=== PATIENT | male | born 1965 | race Two or more races ===

== ENCOUNTER 2019-06-29 19:58 | Inpatient (IN) | payer MEDICAID ==
[~2019-06-29] VITALS: Ht 180.3 cm; Wt 75.8 kg
[~2019-06-29 19:58] MED LIST: SODIUM BICARBONATE 8.4% INJ 50ML SYRINGE ONE
[2019-06-29] MEDS ORDERED: ALBUTEROL SULF 2.5 MG/0.5ML(0.5%) NEB SOLN ONE (20:01)
[2019-06-29] MEDS ORDERED: CALCIUM CHLOR(10%) 100MG/ML 10ML SYRINGE IV ONE (20:06)
[2019-06-29] MEDS ORDERED: ALBUTEROL SULF 2.5 MG/0.5ML(0.5%) NEB SOLN HHN ONE (20:15)
[2019-06-29] MEDS ORDERED: CALCIUM GLUC 4.65meq/50ml D5AE 50 ML IV ONE (20:15)
[2019-06-29] MEDS ORDERED: SODIUM BICARBONATE 8.4 % INJ 50ML VIAL IV ONE (20:30)
[2019-06-29] MEDS ORDERED: CALCIUM CHL 100MG/ML 1,000 MG in D5W 5% 100 ML IV ONE (20:30)
[2019-06-29 20:41] LABS: Basophils # (auto) 0.1 10 ^3/uL (0-0.2); Eosinophils # (auto) 0.3 10 ^3/uL (0-0.8); Eosinophils % (auto) 6.6 % (0.0-7.0); Hematocrit 30.9 % (41.0-53.0); Hemoglobin 10.3 g/dL (13.5-17.5); Lymphocytes # (auto) 0.4 10 ^3/uL (0.4-5.4); Lymphocytes % (auto) 8.8 % (10.0-50.0); Mean Corpuscular Hemoglobin 27.4 pg (28.0-32.0); Mean Corpuscular Hgb Conc. 33.3 g/dL (32.0-36.0); Mean Corpuscular Volume 82.3 fL (80.0-100.0); Monocytes # (auto) 0.4 10 ^3/uL (0-1.3); Monocytes % (auto) 7.5 % (0.0-12.0); Neutrophils # (auto) 3.8 10 ^3/uL (1.6-8.6); Neutrophils % (auto) 76.1 % (37.0-80.0); Platelet Count (auto) 166 10^3/uL (140-450); Red Blood Cells 3.75 10^6/uL (4.5-5.90); Red Cell Distribution Width 18.7 % (11.8-14.3)
[2019-06-29] MEDS ORDERED: BACITRACIN INJ 50000 UNIT VIAL TOP ONE (20:45)
[2019-06-29] MEDS ORDERED: BACITRACIN TOP OINT 1 UD PKG TOP ONE (20:49)
[2019-06-29 21:08] LABS: Albumin 3.4 g/dL (3.4-5.0); Bilirubin, Total 0.4 mg/dL (0.2-1.0); Magnesium 3.7 mg/dL (1.6-2.6); Total Protein 6.4 g/dL (6.4-8.2)
[2019-06-29 21:18] LABS: Potassium 7.2 mmol/L (3.5-5.1)
[2019-06-29] MEDS ORDERED: SODIUM CHL 0.9% 1000 ML BAG XX ONE (22:00)
[2019-06-29] MEDS ORDERED: DOCUSATE SOD 100 MG CAP PO PRN (22:15)
[2019-06-29] MEDS ORDERED: ONDANSETRON HCL 4 MG/2 ML VIAL IV PRN (22:15)
[2019-06-29] MEDS ORDERED: HYDROcodone-ACET 5/325MG TAB PO PRN (22:15)
[2019-06-29] MEDS ORDERED: ACETAMINOPHEN 325 MG TAB PO PRN (22:15)
[2019-06-29] MEDS ORDERED: NITROGLYCERIN 0.4 MG SL TAB SL PRN (22:15)
[2019-06-29] MEDS ORDERED: MORPHINE SULF INJ 2 MG/ML SYRINGE 1ML IV PRN (22:15)
[2019-06-30 03:46] LABS: Basophils # (auto) 0 10 ^3/uL (0-0.2); Basophils % (auto) 0.6 % (0.0-2.0); Eosinophils # (auto) 0.3 10 ^3/uL (0-0.8); Eosinophils % (auto) 6.2 % (0.0-7.0); Hematocrit 31.9 % (41.0-53.0); Hemoglobin 10.7 g/dL (13.5-17.5); Lymphocytes # (auto) 0.6 10 ^3/uL (0.4-5.4); Lymphocytes % (auto) 10.8 % (10.0-50.0); Mean Corpuscular Hemoglobin 27.5 pg (28.0-32.0); Mean Corpuscular Hgb Conc. 33.4 g/dL (32.0-36.0); Mean Corpuscular Volume 82.2 fL (80.0-100.0); Monocytes # (auto) 0.4 10 ^3/uL (0-1.3); Monocytes % (auto) 7.8 % (0.0-12.0); Neutrophils # (auto) 3.9 10 ^3/uL (1.6-8.6); Neutrophils % (auto) 74.6 % (37.0-80.0); Platelet Count (auto) 167 10^3/uL (140-450); Red Blood Cells 3.88 10^6/uL (4.5-5.90); Red Cell Distribution Width 18.7 % (11.8-14.3); White Blood Cell 5.2 10^3/uL (4.4-10.8)
[2019-06-30 03:52] VITALS: BP 134/81
[2019-06-30 03:59] LABS: Calcium 8.3 mg/dL (8.5-10.1); Potassium 3.7 mmol/L (3.5-5.1)
[2019-06-30 04:02] LABS: BUN/Creatinine Ratio 3.4
[2019-06-30] MEDS ORDERED: hydrALAZINE HCL 25 MG TAB PO SCH (06:00)
[2019-06-30 08:00] VITALS: BP 143/77
[2019-06-30] MEDS: SEVELAMER 800 MG TAB PO SCH ×3 (08:22→18:27)
[2019-06-30] MEDS ORDERED: PANTOPRAZOLE 40 MG/10 ML VIAL INJ IV SCH (10:00)
[2019-06-30] MEDS ORDERED: CARVEDILOL 12.5 MG TAB PO SCH (10:00)
[2019-06-30] MEDS ORDERED: NIFEdipine ER 30 MG TAB PO ONE (10:15)
[2019-06-30 12:00] VITALS: BP 195/103
[2019-06-30] MEDS ORDERED: hydrALAZINE HCL 20 MG/ML VL IV PRN (13:00)
[2019-06-30 14:01] LABS: INR 1.07 (0.9-1.15); Partial Thromboplastin Time 32.8 sec (23.64-32.05)
[2019-06-30] MEDS ORDERED: hydrALAZINE HCL 25 MG TAB PO ONE (14:30)
[2019-06-30 16:00] VITALS: BP 179/94
[2019-06-30] MEDS ORDERED: DESMOPRESSIN INJECTION 20 MCG in SODIUM CHL 0.9% 50 ML IV ONE (19:00)
[2019-06-30 20:15] VITALS: BP 157/83
[2019-06-30] MEDS: NIFEdipine ER 30 MG TAB PO SCH (21:50)
[2019-06-30 23:51] VITALS: BP 152/92
[2019-07-01 03:28] LABS: Basophils # (auto) 0 10 ^3/uL (0-0.2); Eosinophils # (auto) 0.5 10 ^3/uL (0-0.8); Lymphocytes # (auto) 0.5 10 ^3/uL (0.4-5.4); Monocytes # (auto) 0.3 10 ^3/uL (0-1.3); Neutrophils # (auto) 3.7 10 ^3/uL (1.6-8.6)
[2019-07-01 03:30] LABS: Basophils % (auto) 0.7 % (0.0-2.0); Eosinophils % (auto) 9.9 % (0.0-7.0); Hematocrit 30.3 % (41.0-53.0); Lymphocytes % (auto) 9.3 % (10.0-50.0); Mean Corpuscular Hemoglobin 27.4 pg (28.0-32.0); Monocytes % (auto) 6.8 % (0.0-12.0); Neutrophils % (auto) 73.3 % (37.0-80.0); Platelet Count (auto) 137 10^3/uL (140-450); Red Blood Cells 3.65 10^6/uL (4.5-5.90); Red Cell Distribution Width 18.5 % (11.8-14.3)
[2019-07-01 03:48] LABS: Anion Gap 10 (5-15); BUN/Creatinine Ratio 3.4; Blood Urea Nitrogen 55 mg/dL (7-18); Calcium 7.4 mg/dL (8.5-10.1); Carbon Dioxide 22 mmol/L (21-32); Chloride 103 mmol/L (98-107); GFR African American 4 mL/min; GFR Non-African American 3 mL/min; Glucose 88 mg/dL (74-106); Potassium 5.5 mmol/L (3.5-5.1); Sodium 135 mmol/L (136-145)
[2019-07-01 04:22] VITALS: BP 154/88
[2019-07-01] MEDS: hydrALAZINE HCL 25 MG TAB PO SCH ×5 (06:00→23:31)
[2019-07-01] MEDS ORDERED: SODIUM CHL 0.9% 1000 ML BAG XX ONE (07:00)
[2019-07-01 08:30] VITALS: BP 140/72
[2019-07-01] MEDS: SEVELAMER 800 MG TAB PO SCH ×3 (08:48→17:50)
[2019-07-01] MEDS ORDERED: NIFEdipine ER 30 MG TAB PO SCH (10:00)
[2019-07-01] MEDS: NIFEdipine ER 30 MG TAB PO SCH ×2 (10:29→21:51)
[2019-07-01] MEDS: PANTOPRAZOLE 40 MG TAB PO SCH (10:30)
[2019-07-01 13:00] VITALS: BP 184/89
[2019-07-01 16:44] VITALS: BP 164/93
[2019-07-01] MEDS ORDERED: EPOETIN ALFA 4,000 UNIT/ML VL SC ONE (21:00)
[2019-07-01] MEDS: MORPHINE SULF INJ 2 MG/ML SYRINGE 1ML IV PRN (21:51)
[2019-07-01 22:14] VITALS: BP 164/97
[2019-07-01 22:15] VITALS: BP 164/97
[2019-07-02] MEDS: hydrALAZINE HCL 25 MG TAB PO SCH ×2 (05:25→12:58)
[2019-07-02] MEDS: MORPHINE SULF INJ 2 MG/ML SYRINGE 1ML IV PRN ×2 (05:26→10:00)
[2019-07-02 05:31] VITALS: BP 138/80
[2019-07-02 08:00] VITALS: BP 147/78
[2019-07-02] MEDS: SEVELAMER 800 MG TAB PO SCH ×2 (08:03→12:58)
[2019-07-02 09:29] VITALS: BP 147/78
[2019-07-02] MEDS: NIFEdipine ER 30 MG TAB PO SCH (09:45)
[2019-07-02] MEDS: PANTOPRAZOLE 40 MG TAB PO SCH (09:45)
[2019-07-02 11:42] VITALS: BP 147/78
[2019-07-02 14:41] VITALS: BP 192/103
== END 2019-07-02 15:30 | disposition home or self-care (01) | DRG 466 ==
LOC: EDBD 19:58 → ER 20:01 → ICU WEST 20:02 → DOU IN ICU 06-30 00:28 → TELE-CENTR 07-01 11:24
PROVIDERS: ADMIT Hospitalist; ATTEND Hospitalist
PROC: 5A1D70Z Performance of Urinary Filtration, Intermittent, Less than 6 Hours Per Day (ICD-10-PCS; 2019-06-29)
PROC: 06HM33Z Insertion of Infusion Device into Right Femoral Vein, Percutaneous Approach (ICD-10-PCS; 2019-06-29)
PROC: 5A1D70Z Performance of Urinary Filtration, Intermittent, Less than 6 Hours Per Day (ICD-10-PCS; principal; 2019-07-01)
DX: T82.510A Breakdown (mechanical) of surgically created arteriovenous fistula, initial encounter (principal); N18.6 End stage renal disease; I13.2 Hypertensive heart and chronic kidney disease with heart failure and with stage 5 chronic kidney disease, or end stage renal disease; I44.2 Atrioventricular block, complete; I50.41 Acute combined systolic (congestive) and diastolic (congestive) heart failure; I49.8 Other specified cardiac arrhythmias; E87.5 Hyperkalemia; D63.8 Anemia in other chronic diseases classified elsewhere; Y71.2 Prosthetic and other implants, materials and accessory cardiovascular devices associated with adverse incidents; Z99.2 Dependence on renal dialysis; Z91.15 Patient's noncompliance with renal dialysis; Z91.19 Patient's noncompliance with other medical treatment and regimen
CPT/HCPCS: 36415; 36556; 36600; 71045; 80048; 80053; 80061; 82805; 83735; 83880; 84484; 85025; 85610; 85730; 94640; 96365; 96375; 99291; G0378; J1642; J2405; J7060

== ENCOUNTER 2019-08-22 20:41 | Inpatient (IN) | payer MEDICAID ==
[~2019-08-22] VITALS: Ht 180.3 cm; Wt 79.8 kg
[2019-08-22] MEDS ORDERED: hydrALAZINE HCL 20 MG/ML VL IV ONE (21:00)
[2019-08-22 22:13] LABS: Basophils # (auto) 0.1 10 ^3/uL (0-0.2); Hemoglobin 7.7 g/dL (13.5-17.5); Lymphocytes # (auto) 0.7 10 ^3/uL (0.4-5.4); Monocytes # (auto) 0.5 10 ^3/uL (0-1.3); White Blood Cell 16.8 10^3/uL (4.4-10.8)
[2019-08-22 22:14] LABS: Basophils % (auto) 0.6 % (0.0-2.0); Eosinophils # (auto) 2.1 10 ^3/uL (0-0.8); Eosinophils % (auto) 12.5 % (0.0-7.0); Hematocrit 23.9 % (41.0-53.0); Mean Corpuscular Hemoglobin 28.6 pg (28.0-32.0); Mean Corpuscular Hgb Conc. 32.2 g/dL (32.0-36.0); Mean Corpuscular Volume 88.9 fL (80.0-100.0); Neutrophils # (auto) 13.4 10 ^3/uL (1.6-8.6); Neutrophils % (auto) 79.9 % (37.0-80.0); Platelet Count (auto) 250 10^3/uL (140-450); Red Blood Cells 2.69 10^6/uL (4.5-5.90); Red Cell Distribution Width 17.5 % (11.8-14.3)
[2019-08-22 22:21] LABS: Albumin 3.2 g/dL (3.4-5.0); Calcium 8.9 mg/dL (8.5-10.1); Potassium 4.7 mmol/L (3.5-5.1)
[2019-08-22 22:26] LABS: BUN/Creatinine Ratio 6.7; Bilirubin, Total 0.6 mg/dL (0.2-1.0); Total Protein 7.7 g/dL (6.4-8.2)
[2019-08-22 22:29] LABS: INR 1.02 (0.9-1.15); Partial Thromboplastin Time 30.5 sec (23.64-32.05)
[2019-08-22] MEDS ORDERED: ONDANSETRON HCL 4 MG/2 ML VIAL IV ONE (22:45)
[2019-08-22] MEDS ORDERED: MORPHINE SULFATE 4 MG/ML SYR/VIAL IV ONE (22:45)
[2019-08-22] MEDS ORDERED: levoFLOXacin 750MG 150 ML IV ONE (23:00)
[2019-08-23] MEDS ORDERED: TEMAZEPAM 15 MG CAP PO PRN (00:45)
[2019-08-23] MEDS ORDERED: NITROGLYCERIN 0.4 MG SL TAB SL PRN (00:45)
[2019-08-23] MEDS ORDERED: ACETAMINOPHEN 325 MG TAB PO PRN (00:45)
[2019-08-23] MEDS ORDERED: MORPHINE SULF INJ 2 MG/ML SYRINGE 1ML IV PRN (00:45)
[2019-08-23] MEDS ORDERED: ONDANSETRON HCL 4 MG/2 ML VIAL IV PRN (00:45)
[2019-08-23 01:13] VITALS: BP 167/83
[2019-08-23] MEDS: hydrALAZINE HCL 25 MG TAB PO SCH ×3 (06:20→21:48)
[2019-08-23] MEDS: ALBUTEROL SULF HFA 90MCG INH 200DOSE IN SCH ×2 (06:30→14:00)
[2019-08-23] MEDS: CALCIUM ACETATE 667 MG CAP PO SCH ×3 (08:00→18:02)
[2019-08-23 08:20] LABS: Magnesium 2.9 mg/dL (1.6-2.6)
[2019-08-23 08:29] LABS: CRP High Sensitivity 3.62 mg/dL (< 0.3)
[2019-08-23] MEDS: DOXYCYCLINE 100MG/250ML 250 ML IV SCH ×2 (09:49→23:26)
[2019-08-23] MEDS: ASPirin 81 mg TAB PO SCH (09:49)
[2019-08-23] MEDS: ZINC SULFATE 220mg CAP or TAB PO SCH (09:49)
[2019-08-23] MEDS: CHOLECALCIFEROL (VITD3) 1,000UNIT=25mCg TAB PO SCH (09:50)
[2019-08-23] MEDS: ASCORBIC ACID 1,000 MG TAB PO SCH (09:50)
[2019-08-23] MEDS: NIFEdipine ER 30 MG TAB PO SCH (09:50)
[2019-08-23] MEDS: CARVEDILOL 12.5 MG TAB PO SCH ×2 (10:21→21:49)
[2019-08-23] MEDS: MEROPENEM 500MG IVPB 50 ML IV SCH (14:30)
[2019-08-23 17:00] VITALS: BP 154/82
[2019-08-23] MEDS ORDERED: CATHFLO ACTIVASE (ALTEPLASE) 2 MG VIAL IV ONE (17:00)
[2019-08-23] MEDS ORDERED: VANCOMYCIN PER PHARMACY 0 MG IV SCH (18:30)
[2019-08-23] MEDS ORDERED: ALBUTEROL SULF 2.5 MG/0.5ML(0.5%) NEB SOLN NEB PRN (19:15)
[2019-08-23 19:22] LABS: Lymphocytes # (auto) 0.3 10 ^3/uL (0.4-5.4); Monocytes # (auto) 0.4 10 ^3/uL (0-1.3); White Blood Cell 11.2 10^3/uL (4.4-10.8)
[2019-08-23 19:23] LABS: Basophils # (auto) 0 10 ^3/uL (0-0.2); Basophils % (auto) 0.4 % (0.0-2.0); Eosinophils # (auto) 0.9 10 ^3/uL (0-0.8); Eosinophils % (auto) 8.1 % (0.0-7.0); Hematocrit 19.1 % (41.0-53.0); Lymphocytes % (auto) 2.8 % (10.0-50.0); Mean Corpuscular Hemoglobin 28.4 pg (28.0-32.0); Mean Corpuscular Hgb Conc. 31.8 g/dL (32.0-36.0); Mean Corpuscular Volume 89.1 fL (80.0-100.0); Monocytes % (auto) 3.8 % (0.0-12.0); Neutrophils # (auto) 9.5 10 ^3/uL (1.6-8.6); Neutrophils % (auto) 84.9 % (37.0-80.0); Platelet Count (auto) 174 10^3/uL (140-450); Red Blood Cells 2.14 10^6/uL (4.5-5.90); Red Cell Distribution Width 16.8 % (11.8-14.3)
[2019-08-23 19:47] LABS: Hemoglobin 6.1 g/dL (13.5-17.5)
[2019-08-23] MEDS ORDERED: EPOETIN ALFA 10,000 UNIT/1 ML VIAL IV ONE (21:00)
[2019-08-23] MEDS ORDERED: VANCOMYCIN 1GM/250ML 250 ML IV ONE (21:00)
[2019-08-23] MEDS: methylPREDNISolone SOD SUCC 40 MG/ML VL IV SCH (21:49)
[2019-08-23 22:00] VITALS: BP 153/97
[2019-08-24] VITALS (17 sets, daily range): BP systolic 114–196; BP diastolic 59–101
[2019-08-24] MEDS: ALBUTEROL SULF 2.5 MG/0.5ML(0.5%) NEB SOLN NEB SCH ×4 (00:05→19:16)
[2019-08-24] MEDS: IPRATROPIUM BROM 0.5 MG/2.5ML INH SOL NEB SCH ×4 (00:05→19:16)
[2019-08-24] MEDS: MEROPENEM 500MG IVPB 50 ML IV SCH (01:04)
[2019-08-24] MEDS: hydrALAZINE HCL 25 MG TAB PO SCH ×3 (06:24→21:47)
[2019-08-24] MEDS ORDERED: SODIUM CHL 0.9% 1000 ML BAG XX ONE (07:00)
[2019-08-24] MEDS: CALCIUM ACETATE 667 MG CAP PO SCH ×3 (08:00→17:08)
[2019-08-24 08:18] LABS: % Iron Saturation 6.9 % (20-55)
[2019-08-24 08:19] LABS: Albumin 2.7 g/dL (3.4-5.0); Calcium 9.1 mg/dL (8.5-10.1)
[2019-08-24 08:24] LABS: BUN/Creatinine Ratio 7.1; Bilirubin, Total 0.6 mg/dL (0.2-1.0); Total Protein 6.8 g/dL (6.4-8.2)
[2019-08-24 08:26] LABS: Potassium 6.2 mmol/L (3.5-5.1)
[2019-08-24 09:25] LABS: Basophils # (auto) 0 10 ^3/uL (0-0.2); Basophils % (auto) 0.1 % (0.0-2.0); Eosinophils # (auto) 0 10 ^3/uL (0-0.8); Eosinophils % (auto) 0.3 % (0.0-7.0); Hematocrit 20.1 % (41.0-53.0); Lymphocytes # (auto) 0.2 10 ^3/uL (0.4-5.4); Mean Corpuscular Hgb Conc. 32.8 g/dL (32.0-36.0); Mean Corpuscular Volume 88.5 fL (80.0-100.0); Monocytes # (auto) 0.1 10 ^3/uL (0-1.3); Monocytes % (auto) 0.9 % (0.0-12.0); Neutrophils # (auto) 8.3 10 ^3/uL (1.6-8.6); Neutrophils % (auto) 96.7 % (37.0-80.0); Nucleated Red Blood Cells % 0.1 %; Platelet Count (auto) 149 10^3/uL (140-450); Red Blood Cells 2.27 10^6/uL (4.5-5.90); Red Cell Distribution Width 16.1 % (11.8-14.3); White Blood Cell 8.6 10^3/uL (4.4-10.8)
[2019-08-24 09:30] LABS: Hemoglobin 6.6 g/dL (13.5-17.5)
[2019-08-24] MEDS ORDERED: METOCLOPRAMIDE HCL 5MG/ml INJ 2ml VIAL IV ONE (09:30)
[2019-08-24] MEDS: CARVEDILOL 12.5 MG TAB PO SCH ×3 (10:00→21:48)
[2019-08-24] MEDS: NIFEdipine ER 30 MG TAB PO SCH ×2 (10:00→15:00)
[2019-08-24] MEDS: ZINC SULFATE 220mg CAP or TAB PO SCH (10:20)
[2019-08-24] MEDS: DOXYCYCLINE 100MG/250ML 250 ML IV SCH ×2 (10:20→21:47)
[2019-08-24] MEDS: ASCORBIC ACID 1,000 MG TAB PO SCH (10:21)
[2019-08-24] MEDS: CHOLECALCIFEROL (VITD3) 1,000UNIT=25mCg TAB PO SCH (10:21)
[2019-08-24] MEDS: ASPirin 81 mg TAB PO SCH (10:21)
[2019-08-24] MEDS: methylPREDNISolone SOD SUCC 40 MG/ML VL IV SCH (10:21)
[2019-08-24 10:56] LABS: INR 1.13 (0.9-1.15)
[2019-08-24] MEDS ORDERED: LIDOCAINE 1% (LOCAL ANESTH.) PF 5ml SDV ID PRN (15:45)
[2019-08-24] MEDS ORDERED: VANCOMYCIN 750mg/250ml 250 ML IV ONE (17:00)
[2019-08-24] MEDS ORDERED: EPOETIN ALFA 10,000 UNIT/1 ML VIAL SC ONE (21:00)
[2019-08-24] MEDS ORDERED: SODIUM CHLOR 0.9% PF (SALINE LOCK) 10ML VIAL/SYR IV SCH (22:00)
[2019-08-25] MEDS: ALBUTEROL SULF 2.5 MG/0.5ML(0.5%) NEB SOLN NEB SCH (00:27)
[2019-08-25] MEDS: IPRATROPIUM BROM 0.5 MG/2.5ML INH SOL NEB SCH (00:27)
[2019-08-25] MEDS ORDERED: SODIUM CHL 0.9% 1000 ML BAG XX ONE (07:00)
[2019-08-25] MEDS ORDERED: cefTRIAXone 1GM/50ML D5W 50 ML IV SCH (09:00)
[2019-08-25] MEDS ORDERED: MEROPENEM 500MG IVPB 50 ML IV SCH (14:00)
[2019-08-25] MEDS ORDERED: EPOETIN ALFA 10,000 UNIT/1 ML VIAL SC ONE (21:00)
== END 2019-08-25 01:22 | disposition short-term general hospital (02) | DRG 720 ==
LOC: ER 20:42 → TELE 20:43 → ER 23:20 → TELE 08-23 11:53 → TELE-WESTW 08-23 16:30
PROVIDERS: ADMIT Nurse Practitioner; ATTEND Internal Medicine Nephrology
PROC: 5A09457 Assistance with Respiratory Ventilation, 24-96 Consecutive Hours, Continuous Positive Airway Pressure (ICD-10-PCS; 2019-08-23)
PROC: 30230N1 Transfusion of Nonautologous Red Blood Cells into Peripheral Vein, Open Approach (ICD-10-PCS; principal; 2019-08-24)
PROC: 02HV33Z Insertion of Infusion Device into Superior Vena Cava, Percutaneous Approach (ICD-10-PCS; 2019-08-24)
DX: A41.9 Sepsis, unspecified organism (principal); I13.2 Hypertensive heart and chronic kidney disease with heart failure and with stage 5 chronic kidney disease, or end stage renal disease; I16.1 Hypertensive emergency; I50.43 Acute on chronic combined systolic (congestive) and diastolic (congestive) heart failure; N18.6 End stage renal disease; Z99.2 Dependence on renal dialysis; J81.1 Chronic pulmonary edema; I25.10 Atherosclerotic heart disease of native coronary artery without angina pectoris; I21.A1 Myocardial infarction type 2; E87.5 Hyperkalemia; I38 Endocarditis, valve unspecified; E78.5 Hyperlipidemia, unspecified; J44.9 Chronic obstructive pulmonary disease, unspecified; D63.1 Anemia in chronic kidney disease; J96.01 Acute respiratory failure with hypoxia; R00.0 Tachycardia, unspecified; M31.0 Hypersensitivity angiitis; J44.0 Chronic obstructive pulmonary disease with (acute) lower respiratory infection; Z09 Encounter for follow-up examination after completed treatment for conditions other than malignant neoplasm; Z86.19 Personal history of other infectious and parasitic diseases; Z88.8 Allergy status to other drugs, medicaments and biological substances; Z91.14 Patient's other noncompliance with medication regimen; Z95.2 Presence of prosthetic heart valve; Z99.81 Dependence on supplemental oxygen; Z20.828 Contact with and (suspected) exposure to other viral communicable diseases; I27.21 Secondary pulmonary arterial hypertension; I05.9 Rheumatic mitral valve disease, unspecified; J15.6 Pneumonia due to other Gram-negative bacteria; J15.9 Unspecified bacterial pneumonia
CPT/HCPCS: 36415; 36569; 36600; 71045; 71275; 80053; 80202; 82728; 82805; 83540; 83550; 83605; 83615; 83735; 83880; 84443; 84484; 85025; 85379; 85610; 85652; 85730; 86141; 86850; 86900; 86901; 86920; 87040; 87081; 90935; 93005; 93306; 93970; 94640; 94660; 96365; 96366; 96367; 96375; 99291; G0378; J0885; J1956; J2185; J2405; J3490

== ENCOUNTER 2019-09-08 21:19 | Inpatient (IN) | payer MEDICAID ==
[~2019-09-08] VITALS: Ht 180.3 cm; Wt 82.9 kg
[2019-09-08 22:37] LABS: Basophils # (auto) 0.1 10 ^3/uL (0-0.2); Eosinophils # (auto) 0.6 10 ^3/uL (0-0.8); Lymphocytes # (auto) 0.4 10 ^3/uL (0.4-5.4); Monocytes # (auto) 0.2 10 ^3/uL (0-1.3); Neutrophils # (auto) 4.9 10 ^3/uL (1.6-8.6)
[2019-09-08 22:39] LABS: Basophils % (auto) 1.2 % (0.0-2.0); Eosinophils % (auto) 9.3 % (0.0-7.0); Hematocrit 24.8 % (41.0-53.0); Lymphocytes % (auto) 5.7 % (10.0-50.0); Mean Corpuscular Hemoglobin 27.4 pg (28.0-32.0); Mean Corpuscular Hgb Conc. 32.2 g/dL (32.0-36.0); Mean Corpuscular Volume 85.3 fL (80.0-100.0); Monocytes % (auto) 3.6 % (0.0-12.0); Neutrophils % (auto) 80.2 % (37.0-80.0); Platelet Count (auto) 245 10^3/uL (140-450); Red Blood Cells 2.91 10^6/uL (4.5-5.90); Red Cell Distribution Width 16.1 % (11.8-14.3); White Blood Cell 6.1 10^3/uL (4.4-10.8)
[2019-09-08 22:54] LABS: Albumin 2.7 g/dL (3.4-5.0); Calcium 7.8 mg/dL (8.5-10.1); Magnesium 2.7 mg/dL (1.6-2.6); Potassium 4.2 mmol/L (3.5-5.1)
[2019-09-08 23:03] LABS: BUN/Creatinine Ratio 6.3; Bilirubin, Total 0.3 mg/dL (0.2-1.0); Total Protein 6.6 g/dL (6.4-8.2)
[2019-09-09 04:15] LABS: Eosinophils # (auto) 0.5 10 ^3/uL (0-0.8); Hemoglobin 7.4 g/dL (13.5-17.5); Lymphocytes # (auto) 0.3 10 ^3/uL (0.4-5.4); Mean Corpuscular Volume 85.1 fL (80.0-100.0); Monocytes # (auto) 0.2 10 ^3/uL (0-1.3); Neutrophils # (auto) 3.8 10 ^3/uL (1.6-8.6)
[2019-09-09 04:16] LABS: Basophils # (auto) 0.1 10 ^3/uL (0-0.2); Basophils % (auto) 1.1 % (0.0-2.0); Eosinophils % (auto) 10.7 % (0.0-7.0); Hematocrit 22.8 % (41.0-53.0); Lymphocytes % (auto) 6.6 % (10.0-50.0); Mean Corpuscular Hemoglobin 27.6 pg (28.0-32.0); Mean Corpuscular Hgb Conc. 32.4 g/dL (32.0-36.0); Monocytes % (auto) 3.9 % (0.0-12.0); Neutrophils % (auto) 77.7 % (37.0-80.0); Platelet Count (auto) 205 10^3/uL (140-450); Red Blood Cells 2.68 10^6/uL (4.5-5.90); Red Cell Distribution Width 16.1 % (11.8-14.3); White Blood Cell 4.9 10^3/uL (4.4-10.8)
[2019-09-09 04:27] LABS: INR 1.56 (0.9-1.15)
[2019-09-09 04:29] LABS: Calcium 7.6 mg/dL (8.5-10.1); Potassium 4.4 mmol/L (3.5-5.1)
[2019-09-09 04:32] LABS: Albumin 2.5 g/dL (3.4-5.0); BUN/Creatinine Ratio 6.6
[2019-09-09 04:37] LABS: Bilirubin, Total 0.3 mg/dL (0.2-1.0); Total Protein 6.3 g/dL (6.4-8.2)
[2019-09-09] MEDS ORDERED: ONDANSETRON HCL 4 MG/2 ML VIAL IV PRN (05:30)
[2019-09-09] MEDS ORDERED: TEMAZEPAM 15 MG CAP PO PRN (05:30)
[2019-09-09] MEDS ORDERED: MORPHINE SULF INJ 2 MG/ML SYRINGE 1ML IV PRN (05:30)
[2019-09-09] MEDS ORDERED: ACETAMINOPHEN 325 MG TAB PO PRN (05:30)
[2019-09-09] MEDS ORDERED: DOCUSATE SOD 100 MG CAP PO PRN (05:30)
[2019-09-09] MEDS ORDERED: LORazepam 0.5 MG TAB PO PRN (05:30)
[2019-09-09 06:40] LABS: Basophils # (auto) 0.1 10 ^3/uL (0-0.2); Basophils % (auto) 1.3 % (0.0-2.0); Eosinophils # (auto) 0.4 10 ^3/uL (0-0.8); Lymphocytes # (auto) 0.3 10 ^3/uL (0.4-5.4); Lymphocytes % (auto) 7.3 % (10.0-50.0); Monocytes # (auto) 0.2 10 ^3/uL (0-1.3); White Blood Cell 3.9 10^3/uL (4.4-10.8)
[2019-09-09] MEDS: CALCIUM ACETATE 667 MG CAP PO SCH ×3 (06:40→22:52)
[2019-09-09 06:42] LABS: Eosinophils % (auto) 10.5 % (0.0-7.0); Hematocrit 21.8 % (41.0-53.0); Hemoglobin 7.4 g/dL (13.5-17.5); Mean Corpuscular Hemoglobin 28.7 pg (28.0-32.0); Mean Corpuscular Hgb Conc. 33.8 g/dL (32.0-36.0); Neutrophils % (auto) 76.9 % (37.0-80.0); Nucleated Red Blood Cells % 0.1 %; Platelet Count (auto) 193 10^3/uL (140-450); Red Blood Cells 2.57 10^6/uL (4.5-5.90); Red Cell Distribution Width 15.9 % (11.8-14.3)
[2019-09-09] MEDS: hydrALAZINE HCL 25 MG TAB PO SCH ×3 (06:45→22:00)
[2019-09-09 06:53] LABS: Potassium 4.2 mmol/L (3.5-5.1)
[2019-09-09 06:59] LABS: BUN/Creatinine Ratio 6.7; Calcium 7.5 mg/dL (8.5-10.1)
[2019-09-09] MEDS: NIFEdipine ER 30 MG TAB PO SCH (10:00)
[2019-09-09] MEDS ORDERED: FAMO20TA10 PO (13:00)
[2019-09-09] MEDS ORDERED: ENOXAPARIN SOD 80 MG/0.8ML SYRINGE SC ONE (13:00)
[2019-09-09] MEDS ORDERED: SENN1CAP4 PO (13:00)
[2019-09-09] MEDS ORDERED: AMLO10TA13 PO (13:00)
[2019-09-09] MEDS ORDERED: ASPI-231 PO (13:00)
[2019-09-09] MEDS ORDERED: PERCOT PO (13:00)
[2019-09-09] MEDS ORDERED: METO-158 PO (13:00)
[2019-09-09] MEDS ORDERED: WARF5TAB71 PO (13:00)
[2019-09-09] MEDS ORDERED: POLY335015 PO (13:00)
[2019-09-09] MEDS ORDERED: SEVE800T8 PO (13:00)
--- NOTE | 2019-09-09 19:55 | NUR ---
Telemetry admit from [facility] admitted to Telemetry unit. Patient oriented to Rachel Bennett, primary RN, unit, room, bed, and unit policies regarding patient care and visiting hours. Patient now on continuous telemetry monitoring, tele box # 55 and telemetry reading on arrival to unit is Sinus rhythm 56. Patient placed on bedside oxygen, weighed by bedscale and encouraged to call if they need something. All questions and concerns addressed, patient verbalized understanding. Note:
[2019-09-09 20:00] VITALS: BP 120/70
[2019-09-09 20:12] VITALS: BP 114/73
[2019-09-10] MEDS: HYDROcodone-ACET 5/325MG TAB PO PRN ×2 (02:50→06:37)
[2019-09-10 05:00] VITALS: BP 104/77
[2019-09-10] MEDS: hydrALAZINE HCL 25 MG TAB PO SCH (06:00)
[2019-09-10] MEDS: CALCIUM ACETATE 667 MG CAP PO SCH ×3 (06:37→21:46)
--- NOTE | 2019-09-10 07:30 | NUR ---
Opening Shift Note Assumed care of patient, who is alert and oriented x4. Respirations are even and unlabored. No S/S of distress/SOB or pain. Bed is low, locked with 2x side rails up. Call light is within reach. Instructed on POC and to call for assist PRN, will continue to monitor for changes Q1hr and PRN.
[2019-09-10 09:07] VITALS: BP 115/84
[2019-09-10] MEDS: NIFEdipine ER 30 MG TAB PO SCH (10:00)
[2019-09-10] MEDS: IRON SUCROSE COMPLEX 200 MG in SODIUM CHL 0.9% 100 ML IV SCH (11:55)
[2019-09-10 12:31] VITALS: BP 104/70
--- NOTE | 2019-09-10 12:32 | NUR ---
Dr. Peyton messer Discussing POC with patient.
[2019-09-10 16:48] VITALS: BP 103/65
[2019-09-10] MEDS: SALINE 0.65 % NASAL SPRAY 45ML BOTTLE EACHNOSTRI SCH ×3 (17:36→21:46)
--- NOTE | 2019-09-10 17:56 | NUR ---
Refusing medication MD ordered nasal spray. Patient refusing first dose scheduled for 1800. Patient states "I don't want to stick anything up there since it stopped bleeding". Will relay to oncoming nurse.
[2019-09-10 22:00] VITALS: BP 102/67
--- NOTE | 2019-09-10 23:32 | NUR ---
1900. RECEIVED REPORT ON PATIENT. ASSUMED CARE OF PATIENT. 0. PATIENT SEEN AND ASSESSED. AWAKE AND ALERT. DENIED PAIN NO NASAL BLEEDING NOTED.
[2019-09-11 05:00] VITALS: BP 129/82
[2019-09-11] MEDS: SALINE 0.65 % NASAL SPRAY 45ML BOTTLE EACHNOSTRI SCH ×2 (06:00→12:00)
[2019-09-11] MEDS: CALCIUM ACETATE 667 MG CAP PO SCH ×2 (06:16→12:50)
[2019-09-11] MEDS ORDERED: SODIUM CHL 0.9% 1000 ML BAG XX ONE (07:00)
[2019-09-11 07:45] LABS: Basophils # (auto) 0.1 10 ^3/uL (0-0.2); Lymphocytes # (auto) 0.3 10 ^3/uL (0.4-5.4); Lymphocytes % (auto) 9.3 % (10.0-50.0); Monocytes # (auto) 0.2 10 ^3/uL (0-1.3); Platelet Count (auto) 177 10^3/uL (140-450); White Blood Cell 2.9 10^3/uL (4.4-10.8)
[2019-09-11 07:48] LABS: Eosinophils # (auto) 0.3 10 ^3/uL (0-0.8); Eosinophils % (auto) 11.6 % (0.0-7.0); Hematocrit 22.1 % (41.0-53.0); Hemoglobin 7.1 g/dL (13.5-17.5); Mean Corpuscular Hemoglobin 26.9 pg (28.0-32.0); Mean Corpuscular Hgb Conc. 32.2 g/dL (32.0-36.0); Mean Corpuscular Volume 83.7 fL (80.0-100.0); Monocytes % (auto) 7.1 % (0.0-12.0); Nucleated Red Blood Cells % 0.1 %; Red Blood Cells 2.64 10^6/uL (4.5-5.90)
[2019-09-11 08:05] LABS: Calcium 7.8 mg/dL (8.5-10.1); Potassium 5.5 mmol/L (3.5-5.1)
--- NOTE | 2019-09-11 08:34 | NUR ---
Dialysis nurse at bedside.
[2019-09-11 09:14] VITALS: BP 120/84
[2019-09-11] MEDS ORDERED: amLODIPine BESYLATE 5 MG TAB PO SCH (10:00)
--- NOTE | 2019-09-11 12:16 | NUR ---
Dialysis complete 3L out. Patient tolerated well. Will continue to monitor.
[2019-09-11 12:48] VITALS: BP 131/84
[2019-09-11] MEDS: HYDROcodone-ACET 5/325MG TAB PO PRN (12:51)
[2019-09-11] MEDS: IRON SUCROSE COMPLEX 200 MG in SODIUM CHL 0.9% 100 ML IV SCH (12:51)
--- NOTE | 2019-09-11 15:46 | NUR ---
Discharge instructions given as ordered. Encourage to follow up with PMD as instructed. All questions and concerns addressed. Patient verbalized understanding. IV removed with catheter intact, pressure dressing applied. Telemetry unit returned to ICU. Patient stated that his friend was going to pick him up. Patient asked to be left in lobby. This nurse took patient down to lobby. No distress noted All belongings are with patient.
[2019-09-11] MEDS ORDERED: EPOETIN ALFA 10,000 UNIT/1 ML VIAL SC ONE (21:00)
== END 2019-09-11 15:48 | disposition home or self-care (01) | DRG 115 ==
LOC: ER 21:19 → TELE 21:20 → TELE-WESTW 09-09 19:55
PROVIDERS: ADMIT Hospitalist; ATTEND Internal Medicine
PROC: 5A1D70Z Performance of Urinary Filtration, Intermittent, Less than 6 Hours Per Day (ICD-10-PCS; principal; 2019-09-11)
DX: R04.0 Epistaxis (principal); I13.2 Hypertensive heart and chronic kidney disease with heart failure and with stage 5 chronic kidney disease, or end stage renal disease; M31.0 Hypersensitivity angiitis; I50.43 Acute on chronic combined systolic (congestive) and diastolic (congestive) heart failure; N18.6 End stage renal disease; Z99.2 Dependence on renal dialysis; Z95.2 Presence of prosthetic heart valve; J44.9 Chronic obstructive pulmonary disease, unspecified; E44.1 Mild protein-calorie malnutrition; J96.10 Chronic respiratory failure, unspecified whether with hypoxia or hypercapnia; D63.8 Anemia in other chronic diseases classified elsewhere; R79.89 Other specified abnormal findings of blood chemistry; D68.9 Coagulation defect, unspecified; Z79.01 Long term (current) use of anticoagulants; E78.5 Hyperlipidemia, unspecified; I27.20 Pulmonary hypertension, unspecified; Z80.9 Family history of malignant neoplasm, unspecified; Z83.3 Family history of diabetes mellitus; Z88.5 Allergy status to narcotic agent; Z88.8 Allergy status to other drugs, medicaments and biological substances
CPT/HCPCS: 36415; 71045; 80048; 80053; 83735; 83880; 84484; 85025; 85610; 85730; 86850; 86900; 86901; 90935; 93005; 93306; G0378; J0885; J1756